=== PATIENT | female | born 1975 | race Two or more races ===

== ENCOUNTER 2019-08-27 19:58 | Emergency (ER) | payer SELFPAY ==
[~2019-08-27] VITALS: Ht 165.1 cm; Wt 154.2 kg
[2019-08-27 20:46] VITALS: BP 112/30
== END 2019-08-27 20:43 | disposition left against medical advice (07) ==
LOC: EDBD 19:58 → ER 20:04
DX: E11.22 Type 2 diabetes mellitus with diabetic chronic kidney disease (principal); N18.6 End stage renal disease; Z53.29 Procedure and treatment not carried out because of patient's decision for other reasons
CPT/HCPCS: 36600; 82805; 99291

== ENCOUNTER 2021-07-29 23:29 | Inpatient (IN) | payer MEDICARE, BC ==
[~2021-07-29] VITALS: Ht 157.5 cm; Wt 128.0 kg
[2021-07-30] MEDS ORDERED: SODIUM CHLORIDE 0.9% 250 ML IV ONE (00:15)
[2021-07-30 03:06] LABS: Basophils # (auto) 0 10 ^3/uL (0-0.2); Eosinophils # (auto) 0.1 10 ^3/uL (0-0.8); Eosinophils % (auto) 0.7 % (0.0-7.0); Lymphocytes # (auto) 0.6 10 ^3/uL (0.4-5.4); Mean Corpuscular Hemoglobin 33.7 pg (28.0-32.0); Monocytes # (auto) 0.6 10 ^3/uL (0-1.3)
[2021-07-30 03:07] LABS: Basophils % (auto) 0.3 % (0.0-2.0); Hematocrit 30.8 % (36.0-46.0); Hemoglobin 9.9 g/dL (12.2-16.2); Lymphocytes % (auto) 5.8 % (10.0-50.0); Mean Corpuscular Hgb Conc. 32.2 g/dL (32.0-36.0); Mean Corpuscular Volume 104.8 fL (80.0-100.0); Monocytes % (auto) 5.8 % (0.0-12.0); Neutrophils # (auto) 9.7 10 ^3/uL (1.6-8.6); Neutrophils % (auto) 87.4 % (37.0-80.0); Red Blood Cells 2.94 10^6/uL (4.0-5.20); Red Cell Distribution Width 14.6 % (11.8-14.3); White Blood Cell 11.1 10^3/uL (4.4-10.8)
[2021-07-30 03:26] LABS: Albumin 3.2 g/dL (3.4-5.0); Calcium 7.8 mg/dL (8.5-10.1); Magnesium 3.5 mg/dL (1.6-2.6); Potassium 4.8 mmol/L (3.5-5.1)
[2021-07-30 03:33] LABS: BUN/Creatinine Ratio 6.1; Bilirubin, Total 0.2 mg/dL (0.2-1.0)
[2021-07-30] MEDS ORDERED: ENOXAPARIN SOD 100 MG/1 ML SYRINGE SC ONE (07:15)
[2021-07-30] MEDS ORDERED: ASPirin 81 mg TAB PO ONE (07:15)
[2021-07-30] MEDS ORDERED: NITROGLYCERIN 0.4 MG SL TAB SL PRN (09:15)
[2021-07-30] MEDS ORDERED: DOCUSATE SOD 100 MG CAP PO PRN (09:15)
[2021-07-30] MEDS ORDERED: MORPHINE SULFATE INJECTION 2 MG/ML SYRG IV PRN (09:15)
[2021-07-30] MEDS ORDERED: ONDANSETRON HCL 4 MG/2 ML VIAL IV PRN (09:15)
[2021-07-30] MEDS ORDERED: NOREPINEPHRINE 8 MG/250ML KIT 250 ML IV SCH (09:15)
[2021-07-30] MEDS: ZINC SULFATE 220mg CAP or TAB PO SCH (10:25)
[2021-07-30] MEDS: MULTIPLE VITAMIN TAB PO SCH (10:25)
[2021-07-30] MEDS: ASCORBIC ACID 500 MG TAB PO SCH ×2 (10:25→23:14)
[2021-07-30] MEDS: PIPERACILLIN-TAZOB 2.25GM 50 ML IV SCH ×2 (10:25→23:14)
[2021-07-30] MEDS ORDERED: HYDR25TA87 PO (11:15)
[2021-07-30] MEDS ORDERED: CALC10TA PO (11:15)
[2021-07-30] MEDS ORDERED: GABA300C10 PO (11:15)
[2021-07-30] MEDS ORDERED: LEV25T PO (11:15)
[2021-07-30] MEDS ORDERED: SEVE800T10 PO (11:15)
[2021-07-30 13:00] VITALS: BP 134/48
[2021-07-30 17:00] VITALS: BP 108/54
[2021-07-30 22:00] VITALS: BP 77/45
[2021-07-31 05:00] VITALS: BP 124/76
[2021-07-31 06:04] LABS: Basophils # (auto) 0 10 ^3/uL (0-0.2); Basophils % (auto) 0.6 % (0.0-2.0); Eosinophils # (auto) 0.5 10 ^3/uL (0-0.8); Eosinophils % (auto) 6.2 % (0.0-7.0); Hemoglobin 9.8 g/dL (12.2-16.2); Lymphocytes # (auto) 1.5 10 ^3/uL (0.4-5.4); Lymphocytes % (auto) 17.1 % (10.0-50.0); Mean Corpuscular Hemoglobin 34.2 pg (28.0-32.0); Mean Corpuscular Hgb Conc. 32.6 g/dL (32.0-36.0); Mean Corpuscular Volume 104.9 fL (80.0-100.0); Monocytes # (auto) 0.8 10 ^3/uL (0-1.3); Monocytes % (auto) 9.2 % (0.0-12.0); Neutrophils # (auto) 5.7 10 ^3/uL (1.6-8.6); Neutrophils % (auto) 66.9 % (37.0-80.0); Nucleated Red Blood Cells % 0.1 %; Red Blood Cells 2.86 10^6/uL (4.0-5.20); Red Cell Distribution Width 14.9 % (11.8-14.3); White Blood Cell 8.5 10^3/uL (4.4-10.8)
[2021-07-31 06:26] LABS: Albumin 3.3 g/dL (3.4-5.0); Calcium 7.6 mg/dL (8.5-10.1); Potassium 4.5 mmol/L (3.5-5.1)
[2021-07-31 06:30] LABS: BUN/Creatinine Ratio 6.7; Bilirubin, Total 0.3 mg/dL (0.2-1.0)
[2021-07-31] MEDS: PIPERACILLIN-TAZOB 2.25GM 50 ML IV SCH (07:59)
[2021-07-31] MEDS: MULTIPLE VITAMIN TAB PO SCH (08:07)
[2021-07-31] MEDS: ASCORBIC ACID 500 MG TAB PO SCH ×2 (08:07→23:11)
[2021-07-31] MEDS: ZINC SULFATE 220mg CAP or TAB PO SCH (08:07)
[2021-07-31] MEDS: ACETAMINOPHEN 325 MG TAB PO PRN ×3 (08:08→21:03)
[2021-07-31 08:57] VITALS: BP 104/72
[2021-07-31] MEDS ORDERED: VANCOMYCIN PER PHARMACY 0 MG IV SCH (12:30)
[2021-07-31 13:00] VITALS: BP 122/66
[2021-07-31] MEDS ORDERED: VANCOMYCIN 1GM/250ML 250 ML IV ONE (14:00)
[2021-07-31 17:00] VITALS: BP 112/69
[2021-07-31 21:41] VITALS: BP 152/78
[2021-07-31] MEDS ORDERED: FAMOTIDINE (10MG/ML) 2ML VL IV SCH (22:00)
[2021-07-31] MEDS: HEPARIN SODIUM (PORCINE) 5000 UNITS/ML 1ML VIAL SC SCH (23:14)
[2021-08-01 05:00] VITALS: BP 160/70
[2021-08-01 05:56] VITALS: BP 155/84
[2021-08-01] MEDS ORDERED: SODIUM CHL 0.9% 1000 ML BAG XX ONE (07:00)
[2021-08-01 09:00] VITALS: BP 156/66
[2021-08-01 09:57] LABS: Basophils # (auto) 0 10 ^3/uL (0-0.2); Basophils % (auto) 0.5 % (0.0-2.0); Eosinophils # (auto) 0.7 10 ^3/uL (0-0.8); Eosinophils % (auto) 7.4 % (0.0-7.0); Hematocrit 31.4 % (36.0-46.0); Hemoglobin 10.4 g/dL (12.2-16.2); Lymphocytes # (auto) 1.2 10 ^3/uL (0.4-5.4); Lymphocytes % (auto) 13.6 % (10.0-50.0); Mean Corpuscular Volume 106.1 fL (80.0-100.0); Monocytes # (auto) 0.8 10 ^3/uL (0-1.3); Monocytes % (auto) 9.1 % (0.0-12.0); Neutrophils # (auto) 6.3 10 ^3/uL (1.6-8.6); Neutrophils % (auto) 69.4 % (37.0-80.0); Nucleated Red Blood Cells % 0.1 %; Red Blood Cells 2.96 10^6/uL (4.0-5.20); Red Cell Distribution Width 15.1 % (11.8-14.3)
[2021-08-01] MEDS: ZINC SULFATE 220mg CAP or TAB PO SCH (10:00)
[2021-08-01] MEDS: HEPARIN SODIUM (PORCINE) 5000 UNITS/ML 1ML VIAL SC SCH (10:00)
[2021-08-01] MEDS ORDERED: B-COMPLEX W/ C & FOLIC ACID(NEPHROVITE TAB) PO SCH (10:00)
[2021-08-01] MEDS: MULTIPLE VITAMIN TAB PO SCH (10:00)
[2021-08-01] MEDS: ASCORBIC ACID 500 MG TAB PO SCH (10:00)
[2021-08-01 12:58] VITALS: BP 160/74
[2021-08-01] MEDS ORDERED: EPOETIN ALFA-EPBX 10,000 UNIT/1ML VIAL SC ONE (21:00)
== END 2021-08-01 16:30 | disposition left against medical advice (07) | DRG 871 ==
LOC: EDUNIT# 23:29 → EDBD 23:29 → ER 23:29 → TELE 07-30 09:06 → TELE-WESTW 07-30 10:39
PROVIDERS: ADMIT Internal Medicine; ATTEND Internal Medicine
DX: A41.9 Sepsis, unspecified organism (principal); R65.21 Severe sepsis with septic shock; N18.6 End stage renal disease; I21.4 Non-ST elevation (NSTEMI) myocardial infarction; G92.8 Other toxic encephalopathy; J69.0 Pneumonitis due to inhalation of food and vomit; I13.2 Hypertensive heart and chronic kidney disease with heart failure and with stage 5 chronic kidney disease, or end stage renal disease; Z68.43 Body mass index [BMI] 50.0-59.9, adult; L02.214 Cutaneous abscess of groin; E11.40 Type 2 diabetes mellitus with diabetic neuropathy, unspecified; D63.1 Anemia in chronic kidney disease; E66.01 Morbid (severe) obesity due to excess calories; R74.01 Elevation of levels of liver transaminase levels; Z20.822 Contact with and (suspected) exposure to COVID-19; R55 Syncope and collapse; Z53.29 Procedure and treatment not carried out because of patient's decision for other reasons; E11.22 Type 2 diabetes mellitus with diabetic chronic kidney disease; I50.9 Heart failure, unspecified; Z82.0 Family history of epilepsy and other diseases of the nervous system; Z83.3 Family history of diabetes mellitus; Z85.42 Personal history of malignant neoplasm of other parts of uterus; Z88.5 Allergy status to narcotic agent; Z90.710 Acquired absence of both cervix and uterus; Z99.2 Dependence on renal dialysis; Z90.49 Acquired absence of other specified parts of digestive tract
CPT/HCPCS: 36415; 70450; 71045; 76705; 80053; 80202; 82565; 82728; 82962; 83735; 83880; 84484; 85025; 86141; 87040; 87081; 87426; 93005; 93306; 96365; 96372; 99291; G0378; J2543; J3490

== ENCOUNTER → 2024-10-19 | Day surgery (SDC) | payer MEDICARE, BC ==
[~2024-10-19] VITALS: Ht 157.5 cm; Wt 122.5 kg
[~2024-10-19] MED LIST: CALC10TA PO; CLOP75TA28 PO; HYDR25TA87 PO; LEV25T PO; PANT40TA2 PO; SEVE800T10 PO; ceFAZolin 2 GM/D5W100ml 100 ML IV ONE
== END | disposition home or self-care (01) ==
LOC: SUR 08:06
PROVIDERS: ATTEND Surgery Vascular Surgery
DX: N18.6 End stage renal disease (principal); Z53.8 Procedure and treatment not carried out for other reasons; I74.8 Embolism and thrombosis of other arteries; K21.9 Gastro-esophageal reflux disease without esophagitis; E03.9 Hypothyroidism, unspecified; E78.5 Hyperlipidemia, unspecified; G47.30 Sleep apnea, unspecified; Z79.899 Other long term (current) drug therapy; Z90.710 Acquired absence of both cervix and uterus; Z98.890 Other specified postprocedural states; Z83.3 Family history of diabetes mellitus; Z80.0 Family history of malignant neoplasm of digestive organs
CPT/HCPCS: 86850; 86900; 86901

== ENCOUNTER 2025-02-22 06:07 | Day surgery (SDC) | payer MEDICARE, BC ==
[2025-02-18 12:15] LABS: Hematocrit 32.0 % (36.0-46.0); Hemoglobin 10.5 g/dL (12.2-16.2); Mean Corpuscular Hemoglobin 32.8 pg (28.0-32.0); Mean Corpuscular Volume 100.1 fL (80.0-100.0); Nucleated Red Blood Cells % 0.0 %
[2025-02-18 12:33] LABS: INR 0.97 (0.9-1.15); Partial Thromboplastin Time 29.7 SEC (24.5-34.5); Prothrombin Time 10.3 sec (9.3-11.8)
[2025-02-18 13:08] LABS: Alanine Aminotransferase 39 U/L (7-40); Albumin 4.3 g/dL (3.2-4.8); Anion Gap 12 (5-15); BUN/Creatinine Ratio 5.2 (10.0-20.0); Carbon Dioxide 27 mmol/L (20-31); Chloride 102 mmol/L (98-107); Sodium 141 mmol/L (136-145); Total Protein 6.8 g/dL (5.7-8.2)
[2025-02-18 13:18] LABS: Alkaline Phosphatase 169 U/L (46-116); Bilirubin, Total < 0.2 mg/dL (0.2-1.0); Blood Urea Nitrogen 42 mg/dL (9-23); Calcium 7.5 mg/dL (8.7-10.4); Glucose 157 mg/dL (74-106)
[2025-02-18 14:41] LABS: Potassium 5.7 mmol/L (3.5-5.1)
[~2025-02-22] VITALS: Ht 157.5 cm; Wt 122.5 kg
[~2025-02-22 06:07] MED LIST changes: -CALC10TA PO; +TENA20TA PO; -ceFAZolin 2 GM/D5W100ml 100 ML IV ONE
[2025-02-22] MEDS ORDERED: ONDANSETRON HCL 4 MG/2 ML VIAL ONE (07:42)
[2025-02-22] MEDS ORDERED: fentaNYL CITRATE 100 MCG/2 ML VL ONE (07:42)
[2025-02-22] MEDS ORDERED: MIDAZOLAM HCL 2MG/2ML 2ml VIAL (1mg/ml) ONE (07:42)
[2025-02-22] MEDS ORDERED: LIDOCAINE 1% INJ PF 5ML AMP ONE (07:43)
[2025-02-22] MEDS ORDERED: ETOMIDATE (2MG/ML) 20ML VIAL IV ONE (07:43)
[2025-02-22] MEDS ORDERED: METOCLOPRAMIDE HCL 5MG/ml INJ 2ml VIAL ONE (07:43)
[2025-02-22] MEDS ORDERED: ROCURONIUM 10MG/ML 10ML VIAL IV ONE (07:44)
[2025-02-22] MEDS ORDERED: SUGAMMADEX 200mg/2ml Vial (100MG/ML) IV ONE (07:44)
[2025-02-22] MEDS ORDERED: SUCCINYLCHOLINE CHLORIDE 20 MG/ML 10ML VIAL IV ONE (07:52)
[2025-02-22] MEDS: ceFAZolin 2 GM/D5W50ml 50 ML IV ONE (08:05)
[2025-02-22] MEDS ORDERED: ceFAZolin 1GM VL ONE (08:24)
[2025-02-22] MEDS: LIDOCAINE 1% HCL (LOCAL ANESTH.) INJ 20ML MDV ONE (08:50)
[2025-02-22] MEDS: BUPIVACAINE HCL 0.25% P/F 10 ML VIAL ONE (08:51)
[2025-02-22] MEDS: HEPARIN SODIUM (PORCINE) 5000 UNITS/ML 1ML VIAL ONE ×2 (08:52→09:15)
[2025-02-22] MEDS ORDERED: SODIUM CHLORIDE LOCK 10 ML ONE (08:59)
[2025-02-22] MEDS ORDERED: HYDROmorphone HCL 2 MG/ML VL/or syr ONE (09:02)
[2025-02-22 10:30] VITALS: PULSE 88; RESP 19; TEMP 97.9; O2SAT 97
[2025-02-22] MEDS ORDERED: hydrALAZINE HCL 20 MG/ML VL IV PRN (10:30)
[2025-02-22] MEDS ORDERED: ONDANSETRON HCL 4 MG/2 ML VIAL IV ONE (10:30)
[2025-02-22] MEDS ORDERED: HYDROmorphone HCL 2 MG/ML VL/or syr IV PRN (10:30)
[2025-02-22 10:40] VITALS: PULSE 89; RESP 13; O2SAT 99
--- NOTE | 2025-02-22 10:47 | DVHOP2 ---
Operative Report - 2 Report Details Date: 02/22/25 Preop Diagnosis: End-stage renal disease Postop Diagnosis: Same Surgeon: Nikolai Riley MD Anesthesiologist: General endotracheal tube Anesthesia: General Consent: The patient was informed of the risks and benefits of the procedure. These include but are not limited to complications of anesthesia, postoperative infection, incomplete relief of symptoms, recurrence of symptoms, damage to blood vessels, nerves and tendons, deep venous thrombosis, pulmonary embolism and possible need for repeat surgery in the future. Estimated Blood Loss: 150 mL Indications for Surgery: End-stage renal disease need for dialysis access Name of Procedure Performed Right arteriovenous graft placement with bovine graft. Procedure Details Procedure Details: Patient was identified in the preop hold area is being Mrs. Delgado at this point in time she was consented in preop by myself she was brought back to the operating room placed the operating table in supine position after adequate induction of anesthesia antibiotics and time-out. The right arm was prepped and draped in normal surgical fashion. A transverse incision was made just above the elbow on the medial aspect over top of the brachial artery the brachial artery was then dissected out proximally and distally the artery was of normal caliber with minimal disease. Vessel loops were placed around the brachial artery proximally and distally. Attention was then placed to identifying the axillary artery and vein in the axillary region. A vertical incision was made just the level of the axilla. Dissection was taken down to the axillary artery which gave us exposure to the axillary vein. The axillary vein was then isolated found to be adequate size for fistula creation. The vein was then isolated proximally and distally. With vessel loops. At this point in time the 5 mm bovine graft was then brought to the field it was prepared properly with irrigation and hep saline. There was no bleeding noted from any of the branched veins that had been tied off of the prior graft. The graft was then tunneled superficially above the biceps from the axillary artery/vein incision to the brachial artery incision. 3000 units heparin was then given to the patient. At this point in time the arterial anastomosis was prepared the bovine graft was then spatulated and was sewn to the brachial artery in a end-to-side fashion with six 0 Prolene suture. The completion of the anastomosis the vessels involved were all unclamped. The suture line was intact there was no significant bleeding. Surgicel was then placed around the anastomosis. Attention was then placed to the axillary vein which was then opened with the venotomy using a 11 blade. This extended with Paulson scissors. The bovine graft was then spatulated with Paulson scissors. The graft was then sewn to the vein using six 0 Prolene suture. At the completion anastomosis all vessels involved were unclamped the flow was restored Doppler signals were used to confirm that the flow was antegrade through the axillary vein. Surgicel was then placed around the anastomosis. At this point in time both wounds were then irrigated out and closed in similar fashion using a 3-0 Vicryl sutures for the dermal layer followed by skin closure with 4-0 Monocryl subcuticular suture. Dermabond was used for skin followed by gauze and Tegaderm was. The patient awoke without any difficulty taken the PACU in stable condition sponge and needle counts were correct at the end of the procedure. Specimen: none Condition Good Disposition Home (pacu) NIKOLAI RILEY Jr., MD Feb 22, 2025 10:47
[2025-02-22 11:15] VITALS: BP 155/68; PULSE 89; RESP 16; O2SAT 95
== END 2025-02-22 11:45 | disposition home or self-care (01) ==
LOC: SUR 06:07
PROVIDERS: ATTEND Surgery Vascular Surgery
DX: I12.0 Hypertensive chronic kidney disease with stage 5 chronic kidney disease or end stage renal disease (principal); E11.22 Type 2 diabetes mellitus with diabetic chronic kidney disease; N18.6 End stage renal disease; E66.01 Morbid (severe) obesity due to excess calories; E03.9 Hypothyroidism, unspecified; Z99.2 Dependence on renal dialysis; Z88.5 Allergy status to narcotic agent; Z90.710 Acquired absence of both cervix and uterus; Z83.3 Family history of diabetes mellitus; Z85.43 Personal history of malignant neoplasm of ovary; Z90.721 Acquired absence of ovaries, unilateral; Z79.899 Other long term (current) drug therapy; Z79.01 Long term (current) use of anticoagulants; Z79.890 Hormone replacement therapy
CPT/HCPCS: 36415; 36830; 80053; 85025; 85610; 85730; 86850; 86900; 86901; C1768; J0330; J0690; J1171; J1644; J2003; J2250; J2405; J2765; J3010; J3490

== ENCOUNTER 2025-03-22 08:59 | Day surgery (SDC) | payer MEDICARE, BC ==
[~2025-03-22] VITALS: Ht 157.5 cm; Wt 122.5 kg
[2025-03-22 10:23] LABS: Hemoglobin 9.4 g/dL (12.2-16.2); Nucleated Red Blood Cells % 0.1 %
[2025-03-22 10:25] LABS: Hematocrit 28.7 % (36.0-46.0); Mean Corpuscular Hemoglobin 33.4 pg (28.0-32.0); Mean Corpuscular Volume 101.7 fL (80.0-100.0)
[2025-03-22 10:33] LABS: Chloride 101 mmol/L (98-107); Potassium 4.4 mmol/L (3.5-5.1); Sodium 141 mmol/L (136-145)
[2025-03-22 10:34] LABS: Anion Gap 12 (5-15); Carbon Dioxide 28 mmol/L (20-31)
[2025-03-22 10:37] LABS: Calcium 8.3 mg/dL (8.7-10.4)
[2025-03-22 10:39] LABS: BUN/Creatinine Ratio 4.7 (10.0-20.0); Glucose 97 mg/dL (74-106)
[2025-03-22 10:41] LABS: Blood Urea Nitrogen 27 mg/dL (9-23); INR 0.99 (0.9-1.15); Partial Thromboplastin Time 29.9 SEC (24.5-34.5); Prothrombin Time 10.5 sec (9.3-11.8)
[2025-03-22] MEDS ORDERED: fentaNYL CITRATE 100 MCG/2 ML VL ONE (13:01)
[2025-03-22] MEDS ORDERED: MIDAZOLAM HCL 2MG/2ML 2ml VIAL (1mg/ml) ONE (13:01)
[2025-03-22] MEDS ORDERED: PROPOFOL 10 MG/ML 20 ML IV ONE (13:02)
[2025-03-22] MEDS ORDERED: ROCURONIUM 10MG/ML 10ML VIAL IV ONE (13:02)
[2025-03-22] MEDS ORDERED: SUCCINYLCHOLINE CHLORIDE 20 MG/ML 10ML VIAL IV ONE ×2 (13:05)
[2025-03-22] MEDS: HEPARIN SODIUM (PORCINE) 5000 UNITS/ML 1ML VIAL ONE (13:15)
[2025-03-22] MEDS ORDERED: METOCLOPRAMIDE HCL 5MG/ml INJ 2ml VIAL ONE (13:39)
[2025-03-22] MEDS ORDERED: ONDANSETRON HCL 4 MG/2 ML VIAL ONE (13:39)
[2025-03-22] MEDS ORDERED: ceFAZolin 1GM VL ONE (13:44)
[2025-03-22] MEDS ORDERED: SUGAMMADEX 200mg/2ml Vial (100MG/ML) IV ONE (14:03)
[2025-03-22] MEDS ORDERED: BACITRACIN TOP OINT 1 UD PKG TOP ONE (14:37)
[2025-03-22 14:49] VITALS: PULSE 76; RESP 20; TEMP 97.3; O2SAT 88
--- NOTE | 2025-03-22 14:55 | DVHOP2 ---
Operative Report - 2 Report Details Date: 03/22/25 Preop Diagnosis: Thrombosed right arm arteriovenous graft Postop Diagnosis: Same Surgeon: Nikolai Riley MD Anesthesiologist: Gene Anesthesia: General Consent: The patient was informed of the risks and benefits of the procedure. These include but are not limited to complications of anesthesia, postoperative infection, incomplete relief of symptoms, recurrence of symptoms, damage to blood vessels, nerves and tendons, deep venous thrombosis, pulmonary embolism and possible need for repeat surgery in the future. Name of Procedure Performed Thrombectomy of right arteriovenous graft and venous angioplasty Procedure Details Procedure Details: Patient was identified in the preop hold area. She was consented and preopped b y myself. She was brought back to the operating room placed the operating table in supine position after adequate induction of anesthesia antibiotics and time- out. The right arm was prepped and draped in normal surgical fashion. A cutdown was made in the midportion of the right arteriovenous graft. Bovie cauterization was used for hemostasis dissection was taken down to the bovine graft. Wire was circumferentially controlled there was no pulse within it. Once there was proximal and distal control with vessel loops a venotomy was made in the graft in a transverse fashion. Krista catheter was then passed up into the region of the axilla was difficult to pass initially a wire was then used to manipulate through the anastomosis into the central veins this was confirmed with a venogram. A venogram demonstrated a high-grade stenosis at the venous anastomosis using 8 x 4 mm balloon the venous anastomosis was angioplastied. Completion angiogram demonstrated no residual stenosis. At this point in time wire and Krista were used to manipulate across the arterial anastomosis. A Krista catheter was then used to perform a thrombectomy of the proximal graft a large platelet plug was removed with pulsatile bleeding noted afterwards a completion angiogram demonstrated a widely patent arterial anastomosis and widely patent brachial artery proximally and distally. At this point in time using 5 0 Prolene sutures the graft was then closed. There was a good thrill within the graft on closure. There was Doppler signal was also noted in the graft. The wound was then irrigated out and then closed with 3-0 Vicryl sutures followed by Dermabond for skin. Patient tolerated the procedure well was taken to recovery room in stable condition once the wounds were dressed with sterile dressings. Specimen: thrombus plug Condition Stable Disposition 2 Home NIKOLIA RILEY Jr., MD Mar 22, 2025 14:55
[2025-03-22 15:00] VITALS: PULSE 80; RESP 18; O2SAT 95
[2025-03-22] MEDS ORDERED: hydrALAZINE HCL 20 MG/ML VL IV PRN (15:00)
[2025-03-22] MEDS ORDERED: HYDROmorphone HCL 2 MG/ML VL/or syr IV PRN (15:00)
[2025-03-22] MEDS ORDERED: ONDANSETRON HCL 4 MG/2 ML VIAL IV PRN (15:00)
[2025-03-22] MEDS: IOHEXOL 300 MG/ML 100ML BOTTLE IJ ONE (15:04)
--- NOTE | 2025-03-22 15:24 | DVH ---
C-ARM FLUOROSCOPY: PROCEDURE: Right arm thrombectomy FLUOROSCOPY TIME: 386.5 DAP: 55.74 mgy FINDINGS: Spot intraoperative C arm radiographs. IMPRESSION: 1. Please refer to surgical report for detailed findings.
--- NOTE | 2025-03-22 15:24 | DVH ---
XY R SHOULDER 1V XRAY INDICATION: RIGHT ARM THROMBECTOMY TECHNIQUE: Intraoperative fluoroscopic images were obtained Cumulative dose: 55.74 mGy 386.5 seconds fluoroscopic time COMPARISON: None FINDINGS: Successful intraoperative fluoroscopic guidance. IMPRESSION: 1. Successful intraoperative fluoroscopic guidance and please follow up with surgical report.
[2025-03-22 15:49] VITALS: BP 144/77; PULSE 65; RESP 18; O2SAT 95
== END 2025-03-22 16:00 | disposition home or self-care (01) ==
LOC: SUR 08:59
PROVIDERS: ATTEND Surgery Vascular Surgery
DX: T82.868A Thrombosis due to vascular prosthetic devices, implants and grafts, initial encounter (principal); N18.6 End stage renal disease; I12.0 Hypertensive chronic kidney disease with stage 5 chronic kidney disease or end stage renal disease; E11.22 Type 2 diabetes mellitus with diabetic chronic kidney disease; E66.01 Morbid (severe) obesity due to excess calories; E03.9 Hypothyroidism, unspecified; Z79.899 Other long term (current) drug therapy; Z98.890 Other specified postprocedural states; Z90.710 Acquired absence of both cervix and uterus; Z90.49 Acquired absence of other specified parts of digestive tract
CPT/HCPCS: 36415; 36904; 36907; 73020; 76000; 80048; 82962; 84702; 85025; 85610; 85730; 86850; 86900; 86901; 88305; C1725; C1757; J0330; J0690; J1644; J2250; J2405; J2704; J2765; J3010; Q9967

== ENCOUNTER 2025-03-24 11:23 | Emergency (ER) | payer MEDICARE, BC ==
[~2025-03-24] VITALS: Ht 157.5 cm; Wt 120.0 kg
--- NOTE | 2025-03-24 12:45 | ED.PDOC ---
History of Present Illness HPI Comments 50 y/o morbidly obese F presents with spouse with c/c neck pain, redness, and swelling. Patient endorses on progressively worsening symptoms following initial onset after being intubated and having right upper extremity fistula-related procedure 3x days ago. Significant history of cancer, DM, ESRD, HTN, and thyroid disease. Chief Complaint: Neck Pain Time Seen by MD: 12:00 Primary Care Provider: NATHAN Terrazas Notes: Nurses Notes, Medications, Allergies Allergies: Coded Allergies: Morphine (Verified Allergy, Unknown, 07/30/21) Home Meds Reported Medications Tenapanor HCl (Xphozah) 20 Mg Tab, 20 MG PO, TAB 02/18/25 Clopidogrel Bisulfate (Plavix) 75 Mg Tab, 75 MG PO DAILY, TAB 10/16/24 Pantoprazole Sodium Sesquihydr (Protonix) 40 Mg Tab, 40 MG PO DAILY, #30 TAB 10/16/24 Levothyroxine Sodium (Levothyroxine Sodium) 25 Mcg Tab, 1 TAB PO DAILYPRN 07/30/21 Sevelamer Carbonate (Sevelamer Carbonate) 800 Mg Tab, 3 TAB PO TID 07/30/21 Hydralazine HCl (Hydralazine HCl) 25 Mg Tab, 1 TAB PO DAILYPRN 07/30/21 Information Source: Patient Mode of Arrival: Wheelchair Severity: Moderate Timing: Days Duration: Since onset Prehospital treatment: None Past Medical History PAST MEDICAL HISTORY: Cancer, DM, ESRD, HTN, Thyroid Surgical History: Cholecystectomy, Hysterectomy [employer] History: Denies all [employer] Hx Family History Family History (Other): Parkinson Social History Smoker: Non-Smoker, Unknown, Pt Confused Alcohol: Denies ETOH Use, Unknown, Pt Confused Drugs: Denies Drug Use, Unknown, Pt Confused Lives In: Home, Unknown, Pt Confused All Other Systems: Reviewed and Negative (Comprehensive systems review obtained and negative except for what is stated in the HPI.) Physical Exam General Appearance: Moderate Distress, Obese HEENT: Normal ENT Inspection, Pharynx Normal, TMs Normal Neck: Other (Inflammation redness under the chin after intubation) Respiratory: Chest Non-Tender, Lungs Clear, No Accessory Muscle Use, No Respiratory Distress, Normal Breath Sounds Cardiovascular: No Edema, No JVD, No Murmur, No Gallop, Normal Peripheral Pulses, Regular Rate/Rhythm Breast Exam: Deferred Gastrointestinal: No Organomegaly, Non Tender, No Pulsatile Mass, Normal Bowel Sounds, Soft Genitalia: Deferred Pelvic: Deferred Rectal: Deferred Extremities: No calf tenderness Musculoskeletal : Apperance: Normal Neurologic: Alert, Motor Weakness, No Sensory Deficits Cerebellar Function: NOT DONE Reflexes: NOT DONE Skin: Normal Color Peripheral Pulses: 3+ Radial (R), 3+ Radial (L) Lymphatic: No Adenopathy Was a procedure done? Was a procedure done?: No Differential Dx Considerations may include: post-op complication, cellulitis, dermatitis, angioedema, among others X-Ray, Labs, Meds, VS Vital Signs Date Time Temp Pulse Resp B/P (MAP) Pulse Ox O2 Delivery O2 Flow Rate FiO2 03/24/25 14:23 98.4 91 14 121/70 (87) 96 98.4 03/24/25 14:23 91 14 96 Room Air 03/24/25 11:26 98.8 94 18 110/48 94 98.8 Lab Test 03/24/25 13:07 Range/Units White Blood Count 8.2 4.4-10.8 10^3/uL Red Blood Count 2.91 L 4.0-5.20 10^6/uL Hemoglobin 9.8 L 12.2-16.2 g/dL Hematocrit 29.9 L 36.0-46.0 % Mean Corpuscular Volume 102.8 H 80.0-100.0 fL Mean Corpuscular Hemoglobin 33.6 H 28.0-32.0 pg Mean Corpuscular Hemoglobin Concent 32.7 32.0-36.0 g/dL Red Cell Distribution Width 16.8 H 11.8-14.3 % Platelet Count 233 140-450 10^3/uL Mean Platelet Volume 7.5 6.9-10.8 fL Neutrophils (%) (Auto) 75.4 37.0-80.0 % Lymphocytes (%) (Auto) 12.8 10.0-50.0 % Monocytes (%) (Auto) 6.3 0.0-12.0 % Eosinophils (%) (Auto) 4.8 0.0-7.0 % Basophils (%) (Auto) 0.7 0.0-2.0 % Neutrophils # (Auto) 6.2 1.6-8.6 10 ^3/uL Lymphocytes # (Auto) 1.1 0.4-5.4 10 ^3/uL Monocytes # (Auto) 0.5 0-1.3 10 ^3/uL Eosinophils # (Auto) 0.4 0-0.8 10 ^3/uL Basophils # (Auto) 0.1 0-0.2 10 ^3/uL Nucleated Red Blood Cells 0.2 % Sodium Level 139 136-145 mmol/L Potassium Level 4.9 3.5-5.1 mmol/L Chloride Level 100 98-107 mmol/L Carbon Dioxide Level 28 20-31 mmol/L Anion Gap 11 5-15 Blood Urea Nitrogen 26 H 9-23 mg/dL Creatinine 5.72 H 0.550-1.02 mg/dL Glomerular Filtration Rate Calc 8 >90 mL/min BUN/Creatinine Ratio 4.5 L 10.0-20.0 Serum Glucose 131 H 74-106 mg/dL Calcium Level 7.9 L 8.7-10.4 mg/dL Patient alert. Kidney function elevated. Blood sugar elevated. Answering all questions. States that her symptoms started after the intubation. On examination she does have redness and inflammation of the upper part of the neck. Has a anemia. Establish intravenous access. Was given Zosyn. Explained to the patient. Continue to monitor. Time of 1ST Reevaluation: 12:30 Reevaluation 1ST: Unchanged Patient Education/Counseling: Diagnosis, Treatment, Need For Follow Up Family Education/Counseling: Diagnosis, Treatment, Need For Follow Up SEPSIS Sepsis Screen Date sepsis recognized/suspect: Mar 24, 2025 Time Sepsis recognized/suspect: 1128 Recent Procedure: No On Antibiotic Therapy: No Respiratory Rate >20: No Heart Rate >90: No Temp<36 C (96.8 F) or >38.3 C: No SBP <90 or MAP <65 mmHG: No New Acute Mental Status Change: No Is the patient on CPAP, BIPAP,: No Physician Orders Chest Portable (03/24/25 12:38) Urinalysis (03/24/25 12:38) Neck Without Contrast (03/24/25 12:38) Hydrocodone-Acet 10/325mg Tab ([place] 10/ (03/24/25 15:30) Vital Signs Date Time Temp Pulse Resp B/P (MAP) Pulse Ox O2 Delivery O2 Flow Rate FiO2 03/24/25 14:23 98.4 91 14 121/70 (87) 96 98.4 8/27/25 14:23 91 14 96 Room Air 03/24/25 11:26 98.8 94 18 110/48 94 98.8 Laboratory Tests Test 03/24/25 13:07 White Blood Count 8.2 10^3/uL (4.4-10.8) Departure 1 Departure Time of Disposition: 15:32 Impression: Primary Impression: Facial cellulitis Disposition: ADMITTED INPATIENT Admit to: Med Surg Condition: Guarded Critical Care Note Critical Care Time?: No Stability Stability form required: No Heart Score Heart Score: Heart Score Response (Comments) Value History N/A 0 EKG N/A 0 Age N/A 0 Risk Factors N/A 0 Troponin N/A 0 Total 0 I personally scribed for MAYKEL FELDMAN MD ([email or web address]) on 03/24/25 at 12:45. Electronically submitted by Cortes Jiménez ([email or web address]). MAYKEL FELDMAN MD Mar 24, 2025 12:45
--- NOTE | 2025-03-24 13:16 | DVH ---
EXAM: XY CHEST PORTABLE TECHNIQUE: Single frontal chest radiograph CLINICAL HISTORY: sob COMPARISON: CHEST XRAY 1 VIEW on DOS: 07/30/21, CHEST PORTABLE on DOS: 07/30/21 Findings/Impression: Frontal chest radiograph demonstrates no acute osseous or superficial soft tissue abnormalities. Tunneled left-sided HD catheter terminates in the right atrium. The trachea is midline. The cardiac silhouette and mediastinum are within normal limits. No pneumothorax, pleural effusions, or consolidations.
--- NOTE | 2025-03-24 13:24 | DVH ---
EXAM: CT NECK WITHOUT CONTRAST INDICATION: Cellulitis of neck EXAM DATE: 03/24/2025 12:44 PM COMPARISON: None TECHNIQUE: Multiple axial CT images of the neck were obtained using bone algorithm. Axial and coronal reformatting was done. Bone and soft tissue windows were reviewed. Radiation Dose Information: CT Dose: CTDI volume is 28.34 mGy. Dose-length product is 890.45 mGy*cm Findings: Nasopharynx, oropharynx, hypopharynx, and larynx are normal in caliber without evidence of focal mass . Parotid, submandibular, and sublingual glands are within normal limits. The tongue is unremarkable. Right thyroid nodule. No evidence of superior mediastinal lymphadenopathy. Cervical soft tissues within normal limits . Mildly prominent bilateral cervical lymph nodes. Muscul oskeletal structures grossly unremarkable with no evidence of acute osseous abnormality. Mild subcutaneous inflammatory changes along the anterior inferior neck. No focal fluid collections. Impression: 1. No acute osseous abnormalities. 2. Mild anterior inferior neck inflammatory changes without focal fluid collections. 3. Mildly prominent bilateral cervical lymph nodes, nonspecific but favored reactive.
[2025-03-24 13:26] LABS: Hemoglobin 9.8 g/dL (12.2-16.2)
[2025-03-24 13:27] LABS: Hematocrit 29.9 % (36.0-46.0); Mean Corpuscular Hemoglobin 33.6 pg (28.0-32.0); Mean Corpuscular Volume 102.8 fL (80.0-100.0); Nucleated Red Blood Cells % 0.2 %
[2025-03-24 13:35] LABS: Chloride 100 mmol/L (98-107); Potassium 4.9 mmol/L (3.5-5.1); Sodium 139 mmol/L (136-145)
[2025-03-24 13:36] LABS: Anion Gap 11 (5-15); Carbon Dioxide 28 mmol/L (20-31)
[2025-03-24 13:40] LABS: Calcium 7.9 mg/dL (8.7-10.4)
[2025-03-24 13:42] LABS: BUN/Creatinine Ratio 4.5 (10.0-20.0)
[2025-03-24 13:49] LABS: Blood Urea Nitrogen 26 mg/dL (9-23); Glucose 131 mg/dL (74-106)
[2025-03-24 14:23] VITALS: BP 121/70; PULSE 91; RESP 14; TEMP 98.4; O2SAT 96
[2025-03-24] MEDS: HYDROcodone-ACET 10/325MG TAB PO ONE (15:39)
[2025-03-24] MEDS ORDERED: PIPERACILLIN-TAZOB 3.375GM 100 ML IV ONE (15:45)
== END 2025-03-24 15:54 | disposition left against medical advice (07) ==
LOC: ER 11:23
DX: L03.211 Cellulitis of face (principal); L03.221 Cellulitis of neck; I12.0 Hypertensive chronic kidney disease with stage 5 chronic kidney disease or end stage renal disease; E11.22 Type 2 diabetes mellitus with diabetic chronic kidney disease; N18.6 End stage renal disease; E03.9 Hypothyroidism, unspecified; Z79.899 Other long term (current) drug therapy; Z90.49 Acquired absence of other specified parts of digestive tract; Z90.710 Acquired absence of both cervix and uterus; Z88.5 Allergy status to narcotic agent
CPT/HCPCS: 36415; 70490; 71045; 80048; 85025